=== PATIENT | female | born 1995 | race Native Hawaiian/Other Pacific Islander ===

== ENCOUNTER 2025-01-20 13:11 | Outpatient (CLI) | payer BC, SELFPAY | END 2025-01-20 13:12 | disposition home or self-care (01) | PROVIDERS: Visit Provider Family Medicine | DX: F29 Unspecified psychosis not due to a substance or known physiological condition (principal); M54.9 Dorsalgia, unspecified | CPT/HCPCS: A0425; A0427 ==